=== PATIENT | male | born 1985 | race Caucasian/White ===

== ENCOUNTER 2018-11-25 09:30 | Emergency (ER) | payer SELFPAY ==
[~2018-11-25] VITALS: Wt 80.0 kg
[2018-11-25 09:37] VITALS: BP 127/71; PULSE 78; RESP 18
--- NOTE | 2018-11-25 09:53 | ERD ---
ER Documentation Chief Complaint Chief Complaint MECHANICAL FALL AFTER WORKOUT AT THE GYM HPI 33-year-old male no significant past medical history. Was upside down on pull- up bars when he lost his prescription fell headfirst hitting his head on the floor and had loss of consciousness. Immediately regained consciousness and has been alert since. No nausea or vomiting no lightheadedness no pain. Not on anti-coagulants. Patient states his head was about 5 feet from the floor prior to fall ROS All systems reviewed and are negative except as per history of present illness. PMhx/Soc Medical and Surgical Hx: pt denies Medical Hx, pt denies Surgical Hx History of Surgery: No Anesthesia Reaction: No Hx Neurological Disorder: No Hx Respiratory Disorders: No Hx Cardiac Disorders: No Hx Psychiatric Problems: No Hx Miscellaneous Medical Probl: No Hx Alcohol Use: No Hx Substance Use: No Hx Tobacco Use: No Smoking Status: Never smoker Physical Exam Vitals Vital Signs Date Temp Pulse Resp B/P (MAP) Pulse Ox O2 O2 Flow FiO2 Time Delivery Rate 11/25/18 98.1 78 18 127/71 99 09:37 (89) Physical Exam Const: Well-appearing Head: Left forehead hematoma Eyes: Normal Conjunctiva ENT: Normal External Ears, Nose and Mouth. No C-spine tenderness, step-offs or deformities Neck: Full range of motion. No meningismus. Resp: Clear to auscultation bilaterally Cardio: Regular rate and rhythm, no murmurs Abd: Soft, non tender, non distended. Normal bowel sounds Skin: No petechiae or rashes Back Exam: Skin: No bruising or rash Compartments: Soft Motor: Normal flexion and extension of bilateral hip/knee/ankle/foot Sensation: Intact to light touch throughout Bones: No midline TTP Ext: No cyanosis, or edema Neur: Awake and alert Psych: Normal Mood and Affect Procedures/MDM Patient has suffered from minor blunt head trauma that occurred on the following data and time: Just prior to arrival the patient has a GCS of [address] was ordered based on the following indication: Dangerous mechanism of injury (include details of REY) A Head CT was ordered as patient has LOC CT brain and C-spine negative patient is neurologically intact alert and oriented will discharge. Departure Diagnosis: Primary Impression: Fall with no significant injury Encounter type: initial encounter Qualified Codes: W19.XXXA - Unspecified fall, initial encounter Condition: Stable MERJANIAN,SOPHIA MD Nov 25, 2018 09:53
== END 2018-11-25 11:16 | disposition home or self-care (01) ==
LOC: E/R 09:30
DX: Z04.89 Encounter for examination and observation for other specified reasons (principal); R51 Headache
CPT/HCPCS: 70450; 72125